=== PATIENT | female | born 1985 | race Two or more races ===

== ENCOUNTER 2020-02-12 15:26 | Inpatient (IN) | payer MEDICAID ==
[~2020-02-12] VITALS: Ht 154.9 cm; Wt 73.5 kg
[2020-02-12] MEDS ORDERED: METHYLERGONOVINE MALEATE 0.2 MG/ML IM PRN (17:15)
[2020-02-12] MEDS ORDERED: NALOXONE HCL 0.4 MG/ML 1ML VIAL IM PRN (17:15)
[2020-02-12] MEDS ORDERED: CARBOPROST TROMETHAMINE 250 MCG/ML AMPUL IM PRN (17:15)
[2020-02-12] MEDS ORDERED: LIDOCAINE HCL 1% 20ML VIAL (Pyxis) INJ INFIL SCH (17:15)
[2020-02-12] MEDS ORDERED: BUTORPHANOL TARTRATE 2 MG/ML VIAL IV PRN (17:15)
[2020-02-12] MEDS: LACTATED RINGERS 1,000 ML IV SCH (17:45)
[2020-02-12 18:07] LABS: CLARITY URINE CLOUDY (CLEAR); COLOR URINE YELLOW (YELLOW); KETONES URINE NEGATIVE (NEGATIVE); LEUKOCYTE ESTERASE URINE TRACE (NEGATIVE); NITRITE URINE NEGATIVE (NEGATIVE); OCCULT BLOOD URINE 2+ (NEGATIVE); PH URINE 7.5 (4.5-8.0); PROTEIN URINE NEGATIVE (NEGATIVE); SPECIFIC GRAVITY URINE 1.021 (1.005-1.030)
[2020-02-12 18:20] LABS: BASOPHILS % 0.3 % (0.0-2.0); EOSINOPHILS % 0.5 % (0.0-5.0); HEMATOCRIT. 39.1 % (36.0-48.0); HEMOGLOBIN. 13.5 g/dL (12.0-16.0); LYMPHOCYTES % 19.4 % (20.0-50.0); MEAN CORPUSCULAR HEMOGLOBIN 31.8 pg (28.0-32.0); MEAN PLATELET VOLUME 9.2 fl (7.4-10.4); MONOCYTES % 6.7 % (2.0-8.0); NEUTROPHILS % 73.1 % (40.0-76.0); PLATELET 202 x1000/uL (130-400); RED BLOOD CELL COUNT 4.25 mill/uL (4.2-5.4); RED CELL DISTRIBUTION WIDTH 13.9 % (11.6-14.6)
[2020-02-12 18:20] LABS: *AMPHETAMINES SCREEN URINE NEGATIVE (NEGATIVE); *BARBITURATES SCREEN URINE NEGATIVE (NEGATIVE); *BENZODIAZEPINES SCREEN URINE NEGATIVE (NEGATIVE); *COCAINE SCREEN URINE NEGATIVE (NEGATIVE); METHADONE URINE SCREEN NEGATIVE (NEGATIVE); OPIATES URINE SCREEN NEGATIVE (NEGATIVE)
[2020-02-12 18:21] LABS: CANNABINOID URINE SCREEN NEGATIVE (NEGATIVE); PHENCYCLIDINE URINE SCREEN NEGATIVE (NEGATIVE)
[2020-02-12 18:29] LABS: INR 0.9; PARTIAL THROMBOPLASTIN TIME 26.3 sec (23.4-31.0); PROTHROMBIN TIME 9.3 sec (9.6-11.0)
[2020-02-12] MEDS ORDERED: PREN1TAB78 MT (18:43)
[2020-02-12 18:54] LABS: HEPATITIS B SURFACE ANTIGEN NEGATIVE
[2020-02-12] MEDS: DEXT 5%/LR + PITOCIN 20UNITS/L 1,000 ML IV SCH (22:16)
[2020-02-13] MEDS: LACTATED RINGERS 1,000 ML IV SCH (00:29)
[2020-02-13] MEDS ORDERED: DEXT 5%/LR + PITOCIN 20UNITS/L 1,000 ML IV SCH (03:45)
[2020-02-13] MEDS ORDERED: ACETAMINOPHEN WITH CODEINE 300/30MG TABLET PO PRN (03:45)
[2020-02-13] MEDS ORDERED: DIPHENHYDRAMINE 25MG CAPSULE PO PRN (03:45)
[2020-02-13] MEDS ORDERED: LANOLIN OINT 7GM TUBE TOP PRN (03:45)
[2020-02-13] MEDS ORDERED: GLYCERIN/WITCH HAZEL LEAF MEDICATED PAD TOP PRN (03:45)
[2020-02-13] MEDS ORDERED: MINERAL OIL 30ML BOTTLE TOP PRN (03:45)
[2020-02-13] MEDS ORDERED: HEMORRHOIDAL SUPP PR PRN (03:45)
[2020-02-13] MEDS ORDERED: BISACODYL 10MG SUPP PR PRN (03:45)
[2020-02-13] MEDS ORDERED: METHYLERGONOVINE MALEATE 0.2 MG/ML IM PRN ×2 (03:45)
[2020-02-13] MEDS ORDERED: BENZOCAINE/LANOLIN/ALOE VERA SPRAY TOP PRN (03:45)
[2020-02-13] MEDS ORDERED: IBUPROFEN 400MG TABLET PO PRN (03:45)
[2020-02-13] MEDS: DEXT 5%/LR + PITOCIN 20UNITS/L 1,000 ML IV SCH (04:52)
[2020-02-13 05:00] VITALS: BP 104/61
[2020-02-13] MEDS: IBUPROFEN 800MG TABLET PO PRN (05:27)
[2020-02-13 05:30] VITALS: BP 104/60
[2020-02-13 08:00] VITALS: BP 91/50
[2020-02-13] MEDS: SIMETHICONE 80MG TABLET CHEW PO SCH ×4 (08:00→21:06)
[2020-02-13] MEDS: PRENATAL VIT/FE FUMARATE/FA TABLET PO SCH (08:11)
[2020-02-13 09:01] LABS: BASOPHILS % 0.1 % (0.0-2.0); EOSINOPHILS % 0.1 % (0.0-5.0); HEMATOCRIT. 32.6 % (36.0-48.0); HEMOGLOBIN. 11.5 g/dL (12.0-16.0); LYMPHOCYTES % 8.8 % (20.0-50.0); MEAN CORPUSCULAR HEMOGLOBIN 32.6 pg (28.0-32.0); MEAN CORPUSCULAR VOLUME 92.6 fL (81.0-99.0); MEAN PLATELET VOLUME 9.4 fl (7.4-10.4); MONOCYTES % 5.7 % (2.0-8.0); NEUTROPHILS % 85.3 % (40.0-76.0); PLATELET 189 x1000/uL (130-400); RED BLOOD CELL COUNT 3.52 mill/uL (4.2-5.4); RED CELL DISTRIBUTION WIDTH 13.9 % (11.6-14.6)
[2020-02-13 16:00] VITALS: BP 96/57
[2020-02-13 20:00] VITALS: BP 101/53
[2020-02-13] MEDS ORDERED: DOCUSATE SODIUM 100MG CAPSULE PO SCH (21:00)
[2020-02-14] MEDS: IBUPROFEN 800MG TABLET PO PRN (00:04)
[2020-02-14 04:00] VITALS: BP 99/60
[2020-02-14] MEDS: FERROUS SULFATE 325MG TABLET PO SCH ×2 (07:30→12:30)
[2020-02-14] MEDS: SIMETHICONE 80MG TABLET CHEW PO SCH ×2 (08:00→13:00)
[2020-02-14 08:30] VITALS: BP 99/59
[2020-02-14] MEDS: PRENATAL VIT/FE FUMARATE/FA TABLET PO SCH (09:00)
== END 2020-02-14 14:30 | disposition home or self-care (01) | DRG 560 ==
LOC: 8 EST A/PP 15:26 → OBSVTOIN 15:26 → 8 EST LDRP 22:50 → 8EST 02-13 05:00
PROVIDERS: ADMIT Obstetrics & Gynecology; ATTEND Obstetrics & Gynecology
PROC: 10E0XZZ Delivery of Products of Conception, External Approach (ICD-10-PCS; principal; 2020-02-13)
PROC: 3E033VJ Introduction of Other Hormone into Peripheral Vein, Percutaneous Approach (ICD-10-PCS; 2020-02-13)
PROC: 0KQM0ZZ Repair Perineum Muscle, Open Approach (ICD-10-PCS; 2020-02-13)
DX: O24.32 Unspecified pre-existing diabetes mellitus in childbirth (principal); E11.9 Type 2 diabetes mellitus without complications; O70.1 Second degree perineal laceration during delivery; Z3A.39 39 weeks gestation of pregnancy; Z37.0 Single live birth
CPT/HCPCS: 36415; 80305; 81003; 85025; 86592; 86703; 86762; 86850; 86900; 87340; 99281; J0595; J2590; J3490; J7120